=== PATIENT | male | born 1955 | race Caucasian/White ===

== ENCOUNTER 2021-07-23 13:10 | Inpatient (IN) | payer MEDICARE, OTHER ==
[~2021-07-23] VITALS: Ht 177.8 cm; Wt 81.6 kg
[2021-07-23] MEDS ORDERED: FLUT16SP16 (15:29)
[2021-07-23] MEDS ORDERED: ASPI-1420 PO (15:29)
[2021-07-23] MEDS ORDERED: CALC1TAB30 PO (15:29)
[2021-07-23] MEDS ORDERED: AMLO-213 PO (15:29)
[2021-07-23] MEDS ORDERED: ASCO-495 PO (15:29)
[2021-07-23] MEDS ORDERED: LOSA100T31 PO (15:29)
[2021-07-23] MEDS ORDERED: ACETAMINOPHEN 325 MG TABLET PO PRN (15:30)
[2021-07-23] MEDS ORDERED: MAG HYDROX/AL HYDROX/SIMETH 30 ML UDC PO PRN (15:30)
[2021-07-23] MEDS ORDERED: BLOOD SUGAR DIAGNOSTIC 1 EACH STRIP IN ONE (15:30)
[2021-07-23] MEDS ORDERED: MAGNESIUM HYDROXIDE 30 ML UDC PO PRN (15:30)
--- NOTE | 2021-07-23 15:30 | NUR ---
GPS/RN RECEIVED PT DIRECT ADMISSION FROM [facility] ON 5149 FOR GRAVELY DISABLED ORIGINALLY FROM HOME. BROUGHT TO ER BY BROTHER FOR MANIC EPISODE. PT I S AMBULATORY, CONFUSED AND IS POOR HISTORIAN. ON FACE TO FACE ASSESSMENT NO SI OR HI NOTED AT THE TIME OF ADMISSION. ADMITTING ORDERS FROM DR CLARK RECEIVED AND CARRIED OUT. BERKLEY STRANGE MADE AWARE OF ADMISSION. PROPERTY CHECKED FOR CONTRABAND
--- NOTE | 2021-07-23 15:45 | NUR ---
rn-co: Pt is going from room to room, non redirectable, grabbing other patients arm. Refused Ativan PO , Dr Hollingsworth called and ordered Haldol 10 mg IM, Ativan 1 mg and Benadryl 25 mg im stat noted and carried out.
[2021-07-23] MEDS ORDERED: LORAZEPAM INJ 2 MG/ML VIAL IM STA (15:54)
[2021-07-23] MEDS ORDERED: diphenhydrAMINE HCL 50 MG/ML VIAL IM STA (15:54)
[2021-07-23] MEDS ORDERED: HALOPERIDOL LACTATE INJ 5 MG/ML VIAL IM STA (15:54)
[2021-07-23] MEDS ORDERED: METO25TA4 PO (15:58)
[2021-07-23] MEDS ORDERED: PRIM50TA27 PO (15:58)
[2021-07-23] MEDS ORDERED: METF-440 PO (15:58)
[2021-07-23] MEDS ORDERED: QUET25TA PO (15:58)
[2021-07-23] MEDS ORDERED: RISP4TAB70 PO (15:58)
[2021-07-23] MEDS ORDERED: LAMO200T10 PO (15:58)
[2021-07-23 16:00] VITALS: BP 143/91
--- NOTE | 2021-07-23 16:00 | NUR ---
DR. GEORGE CROWLEY (PCP) [phone] DR. DAHIANA GRAHAM (OUT PATIENT PSYCHIATRIST) [phone]
--- NOTE | 2021-07-23 16:00 | NUR ---
RN-CO: PT REFUSED MRSA SWAB.
--- NOTE | 2021-07-23 19:45 | NUR ---
Patient currently sleeping well at this time, no signs of distress. will continue to monitor for behaviors.
--- NOTE | 2021-07-23 20:00 | NUR ---
Refused 8pm vital signs
[2021-07-23] MEDS: PRIMIDONE 50 MG TABLET PO SCH ×2 (21:54→21:59)
--- NOTE | 2021-07-23 22:26 | NUR ---
patient refused 2200 primidone slapped cup and medication out of nurse's hand then went back to sleep.
[2021-07-24] MEDS: LORAZEPAM 0.5 MG TABLET PO PRN (02:02)
--- NOTE | 2021-07-24 02:13 | NUR ---
Ativan given patient reports feeling of anxiety upon waking up in new surrounding. Oriented to new environment and protocols to reduce fear and anxiety.
[2021-07-24 07:34] LABS: CHOLESTEROL 135 mg/dL (<200); HDL CHOLESTEROL 50 mg/dL (40-60); LDL 69 mg/dL (0-99); TRIGLYCERIDES 68 mg/dL (30-150)
[2021-07-24 07:43] LABS: ALBUMIN 4.3 g/dL (3.4-5.0); BILIRUBIN,TOTAL 0.6 mg/dL (0.2-1.0); CALCIUM, SERUM 9.4 mg/dL (8.5-10.1); CREATININE 1.3 mg/dL (0.6-1.3); TOTAL PROTEIN, SERUM 7.7 g/dL (6.4-8.2)
[2021-07-24 08:00] VITALS: BP 108/78
[2021-07-24] MEDS: FLUTICASONE PROPIONATE 16 GM BOTTLE NS SCH (08:31)
[2021-07-24] MEDS: CALCIUM CARB 250MG /VITAMIN D 1 UDTAB PO SCH ×2 (08:32→16:54)
[2021-07-24] MEDS: METFORMIN 500 MG TABLET PO SCH ×2 (08:32→16:54)
[2021-07-24] MEDS: AMLODIPINE BESYLATE 10 MG TABLET PO SCH (08:32)
[2021-07-24] MEDS: ASPIRIN EC 81 MG TABLET.DR PO SCH (08:32)
[2021-07-24] MEDS: LOSARTAN POTASSIUM 50 MG TABLET PO SCH (08:32)
[2021-07-24] MEDS: METOPROLOL SUCCINATE 25 MG TAB.SR.24H PO SCH (08:33)
[2021-07-24] MEDS: ASCORBIC ACID 500 MG TABLET PO SCH (08:34)
--- NOTE | 2021-07-24 09:00 | NUR ---
RN NOTE- PT LABILE PACING, MED COMPLIANT CONFUSED THOUGH INTERACTIVE DENIES ALL
--- NOTE | 2021-07-24 13:10 | NUR ---
MASSIEL Initial Discharge Plan: Patient currently resides at home with brother Gary located at [address] [place], [place] [id number]; ([phone]). Patient would want to return back home upon discharge. SW will coordinate with pt and family for appropriate discharge.
--- NOTE | 2021-07-24 13:38 | NUR ---
MASSIEL Family Contact: MASSIEL spoke with patient's brother Gary ([phone]) to gather collateral and discussed treatment/discharge plan. Per brother, he stated that pt was not taking care of himself at home and is good with "manipulating people". He reported that pt "cheeks his medications". MASSIEL notified [facility] front desk receptionist to notify DERRICK Santana.
[2021-07-24] MEDS: risperiDONE 1 MG TABLET PO SCH ×2 (14:25→18:08)
[2021-07-24] MEDS: OXCARBAZEPINE 150 MG TABLET PO SCH ×2 (15:03→18:08)
[2021-07-24 16:00] VITALS: BP 116/74
[2021-07-24] MEDS: TEMAZEPAM 7.5 MG CAPSULE PO PRN (21:11)
[2021-07-24] MEDS: PRIMIDONE 50 MG TABLET PO SCH (21:11)
[2021-07-25 08:00] VITALS: BP 150/84
[2021-07-25] MEDS: ASPIRIN EC 81 MG TABLET.DR PO SCH (08:35)
[2021-07-25] MEDS: AMLODIPINE BESYLATE 10 MG TABLET PO SCH (08:35)
[2021-07-25] MEDS: METFORMIN 500 MG TABLET PO SCH ×2 (08:35→16:19)
[2021-07-25] MEDS: risperiDONE 1 MG TABLET PO SCH ×3 (08:35→16:19)
[2021-07-25] MEDS: LOSARTAN POTASSIUM 50 MG TABLET PO SCH (08:35)
[2021-07-25] MEDS: ASCORBIC ACID 500 MG TABLET PO SCH (08:36)
[2021-07-25] MEDS: CALCIUM CARB 250MG /VITAMIN D 1 UDTAB PO SCH ×2 (08:36→16:19)
[2021-07-25] MEDS: METOPROLOL SUCCINATE 25 MG TAB.SR.24H PO SCH (08:36)
[2021-07-25] MEDS: OXCARBAZEPINE 150 MG TABLET PO SCH ×3 (08:38→16:21)
[2021-07-25] MEDS: FLUTICASONE PROPIONATE 16 GM BOTTLE NS SCH (08:38)
--- NOTE | 2021-07-25 09:00 | NUR ---
RN NOTE- BETTER THIS MORNING MED COMPLIANT CONFUSED THOUGH INTERACTIVE DENIES ALL
[2021-07-25] MEDS: LORAZEPAM 0.5 MG TABLET PO PRN (11:21)
--- NOTE | 2021-07-25 11:21 | NUR ---
RN NOTE- PT TOUCHING OTHER PTS ANXIOUS PACING. ATIVAN 0.5 MG GIVEN
[2021-07-25 16:00] VITALS: BP 113/75
[2021-07-25 20:00] VITALS: BP 113/68
[2021-07-25] MEDS: PRIMIDONE 50 MG TABLET PO SCH (21:49)
[2021-07-25] MEDS: TEMAZEPAM 7.5 MG CAPSULE PO PRN (22:23)
--- NOTE | 2021-07-25 22:23 | NUR ---
GPS-RN NOTES: INSOMNIA PATIENT C/O INABILITY TO SLEEP. PRN RESTORIL 7.5MG PO GIVEN ORDERED. WILL CONTINUE TO MONITOR.
[2021-07-26 08:00] VITALS: BP 105/70
[2021-07-26] MEDS: CALCIUM CARB 250MG /VITAMIN D 1 UDTAB PO SCH ×2 (08:31→16:35)
[2021-07-26] MEDS: ASPIRIN EC 81 MG TABLET.DR PO SCH (08:31)
[2021-07-26] MEDS: METFORMIN 500 MG TABLET PO SCH ×2 (08:31→16:35)
[2021-07-26] MEDS: ASCORBIC ACID 500 MG TABLET PO SCH (08:32)
[2021-07-26] MEDS: OXCARBAZEPINE 150 MG TABLET PO SCH ×3 (08:32→16:35)
[2021-07-26] MEDS: risperiDONE 1 MG TABLET PO SCH ×3 (08:32→16:35)
[2021-07-26] MEDS: AMLODIPINE BESYLATE 10 MG TABLET PO SCH (08:33)
[2021-07-26] MEDS: LOSARTAN POTASSIUM 50 MG TABLET PO SCH (08:33)
[2021-07-26] MEDS: FLUTICASONE PROPIONATE 16 GM BOTTLE NS SCH (08:46)
[2021-07-26] MEDS: METOPROLOL SUCCINATE 25 MG TAB.SR.24H PO SCH (09:00)
[2021-07-26 16:00] VITALS: BP 126/76
--- NOTE | 2021-07-26 16:10 | NUR ---
MASSIEL Coordination of Care: Patient will follow up with (Patient Office Rep) Dr. Jerri Lora located at Internal [facility], [place] [address]; ([phone]) on August 25 at 11:40AM. Scheduled by
[2021-07-26] MEDS: LORAZEPAM 0.5 MG TABLET PO PRN (16:26)
--- NOTE | 2021-07-26 16:26 | NUR ---
RN-NOTES NOTED PATIENT GUARDED ,ANXIOUS PACING INSIDE THE ROOM, ATIVAN 0.5MG P.O GIVEN PRN ORDER. WILL CONT. MONITORING FOR SAFETY AND BEHAVIOR.
--- NOTE | 2021-07-26 17:30 | NUR ---
RN-NOTES PATIENT WATCHING TV IN THE DAY ROOM,CALM,NO ACUTE DISTRESS NOTED.
[2021-07-26 20:00] VITALS: BP 134/71
[2021-07-26] MEDS: PRIMIDONE 50 MG TABLET PO SCH (21:15)
[2021-07-26] MEDS ORDERED: risperiDONE 1 MG TABLET PO SCH (22:00)
[2021-07-26] MEDS: TEMAZEPAM 7.5 MG CAPSULE PO PRN (22:06)
--- NOTE | 2021-07-26 22:08 | NUR ---
RN NOTES: INSOMNIA PATIENT C/O INABILITY TO SLEEP. PRN RESTORIL 7.5 MG PO ORDERED. WILL CONTINUE TO MONITOR.
[2021-07-27 08:00] VITALS: BP 131/67
[2021-07-27] MEDS: METFORMIN 500 MG TABLET PO SCH ×2 (08:30→16:48)
[2021-07-27] MEDS: OXCARBAZEPINE 150 MG TABLET PO SCH ×3 (08:30→16:48)
[2021-07-27] MEDS: risperiDONE 1 MG TABLET PO SCH ×4 (08:30→21:10)
[2021-07-27] MEDS: ASPIRIN EC 81 MG TABLET.DR PO SCH (08:30)
[2021-07-27] MEDS: AMLODIPINE BESYLATE 10 MG TABLET PO SCH (08:31)
[2021-07-27] MEDS: METOPROLOL SUCCINATE 25 MG TAB.SR.24H PO SCH (08:31)
[2021-07-27] MEDS: ASCORBIC ACID 500 MG TABLET PO SCH (08:31)
[2021-07-27] MEDS: CALCIUM CARB 250MG /VITAMIN D 1 UDTAB PO SCH ×2 (08:31→16:48)
[2021-07-27] MEDS: LOSARTAN POTASSIUM 50 MG TABLET PO SCH (08:32)
[2021-07-27] MEDS: FLUTICASONE PROPIONATE 16 GM BOTTLE NS SCH (08:37)
[2021-07-27] MEDS: GLUCERNA SHAKE 237 ML CAN PO SCH ×2 (11:56→17:06)
--- NOTE | 2021-07-27 12:05 | NUR ---
MASSIEL Coordination of care: SW contacted patient's (Psychiatrist) Dr. Brooke located at [id number] [place] [address] [address], [place] [address]; [phone]) ([phone]) to scheduled an appointment upon discharge. MASSIEL left a voicemail.
[2021-07-27 16:00] VITALS: BP 115/67
[2021-07-27 19:56] VITALS: BP 110/65
[2021-07-27] MEDS: PRIMIDONE 50 MG TABLET PO SCH (21:10)
[2021-07-28 08:00] VITALS: BP 100/69
[2021-07-28] MEDS: GLUCERNA SHAKE 237 ML CAN PO SCH ×2 (08:28→16:25)
[2021-07-28] MEDS: ASCORBIC ACID 500 MG TABLET PO SCH (08:30)
[2021-07-28] MEDS: risperiDONE 1 MG TABLET PO SCH ×4 (08:30→20:20)
[2021-07-28] MEDS: OXCARBAZEPINE 150 MG TABLET PO SCH ×3 (08:30→16:24)
[2021-07-28] MEDS: AMLODIPINE BESYLATE 10 MG TABLET PO SCH (08:30)
[2021-07-28] MEDS: METFORMIN 500 MG TABLET PO SCH ×2 (08:30→16:24)
[2021-07-28] MEDS: CALCIUM CARB 250MG /VITAMIN D 1 UDTAB PO SCH ×2 (08:30→16:24)
[2021-07-28] MEDS: ASPIRIN EC 81 MG TABLET.DR PO SCH (08:30)
[2021-07-28] MEDS: METOPROLOL SUCCINATE 25 MG TAB.SR.24H PO SCH (08:31)
[2021-07-28] MEDS: LOSARTAN POTASSIUM 50 MG TABLET PO SCH (08:31)
[2021-07-28] MEDS: FLUTICASONE PROPIONATE 16 GM BOTTLE NS SCH (08:44)
--- NOTE | 2021-07-28 13:52 | NUR ---
Court Hearing: Patient's court hearing for 4250 was today and it was upheld for GD.
[2021-07-28 16:00] VITALS: BP 142/76
[2021-07-28] MEDS: LORAZEPAM 0.5 MG TABLET PO PRN (19:54)
[2021-07-28 20:17] VITALS: BP 140/82
[2021-07-28] MEDS: TEMAZEPAM 7.5 MG CAPSULE PO PRN (20:20)
[2021-07-28] MEDS: PRIMIDONE 50 MG TABLET PO SCH (20:20)
[2021-07-29 08:00] VITALS: BP 124/89
[2021-07-29] MEDS: OXCARBAZEPINE 150 MG TABLET PO SCH ×3 (08:20→16:10)
[2021-07-29] MEDS: risperiDONE 1 MG TABLET PO SCH ×4 (08:21→21:31)
[2021-07-29] MEDS: AMLODIPINE BESYLATE 10 MG TABLET PO SCH (08:21)
[2021-07-29] MEDS: ASCORBIC ACID 500 MG TABLET PO SCH (08:23)
[2021-07-29] MEDS: CALCIUM CARB 250MG /VITAMIN D 1 UDTAB PO SCH ×2 (08:24→16:11)
[2021-07-29] MEDS: LOSARTAN POTASSIUM 50 MG TABLET PO SCH (08:24)
[2021-07-29] MEDS: METFORMIN 500 MG TABLET PO SCH ×2 (08:24→16:11)
[2021-07-29] MEDS: ASPIRIN EC 81 MG TABLET.DR PO SCH (08:25)
[2021-07-29] MEDS: METOPROLOL SUCCINATE 25 MG TAB.SR.24H PO SCH (08:25)
[2021-07-29] MEDS: FLUTICASONE PROPIONATE 16 GM BOTTLE NS SCH (08:26)
[2021-07-29] MEDS: GLUCERNA SHAKE 237 ML CAN PO SCH ×2 (08:31→17:38)
[2021-07-29 16:00] VITALS: BP 134/66
[2021-07-29 19:58] VITALS: BP 132/73
[2021-07-29] MEDS: PRIMIDONE 50 MG TABLET PO SCH (21:31)
[2021-07-30 08:00] VITALS: BP 129/63
[2021-07-30] MEDS: ASCORBIC ACID 500 MG TABLET PO SCH (08:22)
[2021-07-30] MEDS: AMLODIPINE BESYLATE 10 MG TABLET PO SCH (08:23)
[2021-07-30] MEDS: LOSARTAN POTASSIUM 50 MG TABLET PO SCH (08:23)
[2021-07-30] MEDS: METOPROLOL SUCCINATE 25 MG TAB.SR.24H PO SCH (08:23)
[2021-07-30] MEDS: ASPIRIN EC 81 MG TABLET.DR PO SCH (08:23)
[2021-07-30] MEDS: METFORMIN 500 MG TABLET PO SCH ×2 (08:23→16:21)
[2021-07-30] MEDS: OXCARBAZEPINE 150 MG TABLET PO SCH ×3 (08:24→16:21)
[2021-07-30] MEDS: GLUCERNA SHAKE 237 ML CAN PO SCH ×2 (08:24→16:22)
[2021-07-30] MEDS: CALCIUM CARB 250MG /VITAMIN D 1 UDTAB PO SCH ×2 (08:24→16:22)
[2021-07-30] MEDS: risperiDONE 1 MG TABLET PO SCH ×4 (08:24→21:47)
[2021-07-30] MEDS: FLUTICASONE PROPIONATE 16 GM BOTTLE NS SCH (08:25)
[2021-07-30 16:00] VITALS: BP 145/80
[2021-07-30 19:53] VITALS: BP 141/81
[2021-07-30 20:05] VITALS: BP 141/81
--- NOTE | 2021-07-30 21:45 | NUR ---
RN NOTE PATIENT REFUSED WEEKLY SKIN ASSESSMENT X 3 DESPITE OF EXPLANATIONS, PER PATIENT," MY SKIN IS OK, NO NEED TO CHECK.'
[2021-07-30] MEDS: PRIMIDONE 50 MG TABLET PO SCH (21:47)
[2021-07-31] MEDS: LORAZEPAM 0.5 MG TABLET PO PRN (04:57)
--- NOTE | 2021-07-31 04:59 | NUR ---
RN NOTE: ANXIETY/AGITATION PATIENT VERBALIZED FEELING ANXIOUS, RESTLESS, YELLING IN HIS ROOM, TALKING TO HIMSELF, LOUD, AGITATED. PRN ATIVAN 0.5 MG 1 TAB PO ADMINISTERED.
[2021-07-31 08:00] VITALS: BP 124/77
[2021-07-31] MEDS: LOSARTAN POTASSIUM 50 MG TABLET PO SCH (08:06)
[2021-07-31] MEDS: METFORMIN 500 MG TABLET PO SCH ×2 (08:06→16:08)
[2021-07-31] MEDS: GLUCERNA SHAKE 237 ML CAN PO SCH ×2 (08:06→16:08)
[2021-07-31] MEDS: ASPIRIN EC 81 MG TABLET.DR PO SCH (08:07)
[2021-07-31] MEDS: OXCARBAZEPINE 150 MG TABLET PO SCH ×3 (08:07→16:08)
[2021-07-31] MEDS: CALCIUM CARB 250MG /VITAMIN D 1 UDTAB PO SCH ×2 (08:07→16:08)
[2021-07-31] MEDS: ASCORBIC ACID 500 MG TABLET PO SCH (08:07)
[2021-07-31] MEDS: risperiDONE 1 MG TABLET PO SCH ×4 (08:08→21:01)
[2021-07-31] MEDS: AMLODIPINE BESYLATE 10 MG TABLET PO SCH (08:08)
[2021-07-31] MEDS: METOPROLOL SUCCINATE 25 MG TAB.SR.24H PO SCH (08:08)
[2021-07-31] MEDS: FLUTICASONE PROPIONATE 16 GM BOTTLE NS SCH (08:09)
--- NOTE | 2021-07-31 09:00 | NUR ---
RN NOTE- PT ALERT ORIENTED PERSON PLACE TIME PURPOSE, MED COMPLIANT, CALM DIRECTABLE DENIES ALL AFFECT APPROPRIATE ENGAGES AND VISIBLE
--- NOTE | 2021-07-31 11:16 | NUR ---
MASSIEL Coordination of Care: Patient will follow up with (Psychiatrist) Dr. Brooke located at [address] [facility] [address], [place] [address]; ([phone]) on August 09 at 12:30PM. Addendum: 07/31/21 at 1142 by MASSIEL BANEGAS MASSIEL faxed patient's clinicals.
[2021-07-31 16:00] VITALS: BP 141/70
[2021-07-31 19:52] VITALS: BP 116/62
[2021-07-31] MEDS: PRIMIDONE 50 MG TABLET PO SCH (21:01)
[2021-08-01 08:00] VITALS: BP 120/69
[2021-08-01] MEDS: CALCIUM CARB 250MG /VITAMIN D 1 UDTAB PO SCH (08:16)
[2021-08-01] MEDS: ASPIRIN EC 81 MG TABLET.DR PO SCH (08:16)
[2021-08-01] MEDS: METOPROLOL SUCCINATE 25 MG TAB.SR.24H PO SCH (08:16)
[2021-08-01] MEDS: METFORMIN 500 MG TABLET PO SCH (08:16)
[2021-08-01 08:17] VITALS: BP 120/69
[2021-08-01] MEDS: AMLODIPINE BESYLATE 10 MG TABLET PO SCH (08:17)
[2021-08-01] MEDS: ASCORBIC ACID 500 MG TABLET PO SCH (08:17)
[2021-08-01] MEDS: LOSARTAN POTASSIUM 50 MG TABLET PO SCH (08:17)
[2021-08-01] MEDS: OXCARBAZEPINE 150 MG TABLET PO SCH (08:17)
[2021-08-01] MEDS: risperiDONE 1 MG TABLET PO SCH (08:17)
--- NOTE | 2021-08-01 08:20 | NUR ---
SW Discharge Note: Patient will return back home located at [address], [place] [address]; ([phone]). Patients brother Gary ([phone], ) will pick up man pt at 12PM. Patients brother Gary is aware and agreeable. Upon discharge, patient appears to be happy to be going back home. Patient is alert and oriented x3. Patient denies suicidal or homicidal ideation. Patient denies visual/auditory hallucinations. Patient will follow up with (Machine Design Teacher) Dr. Jerri Lora located at Internal Medicine- [address] [facility], [place] [address]; ([phone]) on August 25 at 11:40AM. Patient will follow up with (Psychiatrist) Dr. Brooke located at [address] [facility] [address], [place] [address]; ([phone]) on August 09 at 12:30PM. Patient presents with euthymic mood and congruent affect.
[2021-08-01] MEDS: FLUTICASONE PROPIONATE 16 GM BOTTLE NS SCH (08:26)
[2021-08-01] MEDS: GLUCERNA SHAKE 237 ML CAN PO SCH (08:26)
--- NOTE | 2021-08-01 12:00 | NUR ---
RN NOTE- DISCHARGE- PT DC AT THIS TIME INTO CARE OF BROTHER. PT IS ALERT ORIENTED TO PERSON PLACE TIME PURPOSE. DENIES SI HI AH VH. VALUABLES RETURNED TO PT, AFTERCARE AND TX REVIEWED W PT AND BROTHER. VERBALIZED UNDERSTANDING. DR WAYNE ORDERED PRIMIDONE CANCELLED AND CONTINUE TRILEPTAL. COMPLIED. VS STABLE. ID [id number] REMOVED. ESCORTED OFF UNIT.
== END 2021-08-01 12:00 | disposition home or self-care (01) | DRG 885 ==
LOC: GPS 15:04
PROVIDERS: ADMIT Psychiatry & Neurology Psychosomatic Medicine
DX: F25.9 Schizoaffective disorder, unspecified (principal); E87.1 Hypo-osmolality and hyponatremia; F29 Unspecified psychosis not due to a substance or known physiological condition; Z73.6 Limitation of activities due to disability; E11.9 Type 2 diabetes mellitus without complications; G25.0 Essential tremor; I10 Essential (primary) hypertension; G31.84 Mild cognitive impairment of uncertain or unknown etiology; F31.9 Bipolar disorder, unspecified; Z79.899 Other long term (current) drug therapy; D72.829 Elevated white blood cell count, unspecified; Z91.14 Patient's other noncompliance with medication regimen
CPT/HCPCS: 36415; 80053-TC; 80061-TC; J1200; J1630; J2060